=== PATIENT | female | born 1985 | race Two or more races ===

== ENCOUNTER 2017-09-04 03:29 | Emergency (ER) | payer OTHER ==
[~2017-09-04] VITALS: Ht 154.9 cm; Wt 95.3 kg
[~2017-09-04 03:29] MED LIST: ALBU8.5H8 INH; FLUT16SP2 BNOSTRILS; MONT4TAB9 PO; PREN1TAB81 PO
--- NOTE | 2017-09-04 03:40 | NUR ---
PATIENT WALKED INTO ER C/O SOB,TOGUE ITCHY/SWELLING THAT STARTED 4HRS PRIOR TO ARRIVAL. PATIENT STATES SYMPTOMS STARTED AFTER EATTING FOOD. WAS SEEN AT [facility] PRIOR TO ARRIVAL FOR SAME COMPLAINT. CAME HERE FOR SYMPTOMS NOT RESOLVING. PATIENT AT THIS TIME WITH NO DISTRESS NOTED
[2017-09-04] MEDS ORDERED: predniSONE 10 MG TABLET PO ONE (04:00)
[2017-09-04] MEDS ORDERED: ALBUTEROL SULFATE 2.5 MG/3 ML NEBU NEB ONE (04:00)
[2017-09-04] MEDS ORDERED: EPINEPHRINE 1 MG/1 ML AMP SQ ONE (04:00)
[2017-09-04] MEDS ORDERED: FAMOTIDINE 20 MG TABLET PO ONE (04:00)
[2017-09-04] MEDS ORDERED: diphenhydrAMINE 50 MG/1 ML VIAL IM ONE (04:00)
[2017-09-04] MEDS ORDERED: EPINEPHRINE 1 MG/1 ML AMP ONE (04:14)
[2017-09-04] MEDS ORDERED: FAMOTIDINE 20 MG TABLET ONE (04:14)
[2017-09-04] MEDS ORDERED: diphenhydrAMINE 50 MG/1 ML VIAL ONE (04:14)
[2017-09-04] MEDS ORDERED: predniSONE 10 MG TABLET ONE (04:15)
[2017-09-04] MEDS ORDERED: predniSONE 50 MG TABLET ONE (04:15)
[2017-09-04] MEDS ORDERED: ALBUTEROL SULFATE 2.5 MG/3 ML NEBU ONE (04:16)
--- NOTE | 2017-09-04 04:30 | NUR ---
PATIENT SLEEPING WITH NO DISTRESS NOTED
--- NOTE | 2017-09-04 05:40 | NUR ---
Patient discharged to home in stable conditon WITH BOYFRIEND TAKING PATIENT HOME. Written and verbal after care instructions given. Patient verbalizes understanding of instructions. PATIENT WALKED OUT OF ER WITH NO DISTRESS NOTED
[2017-09-04 05:41] VITALS: BP 138/91
== END 2017-09-04 05:45 | disposition home or self-care (01) ==
LOC: ER 03:31
DX: T78.1XXA Other adverse food reactions, not elsewhere classified, initial encounter (principal); J45.909 Unspecified asthma, uncomplicated; F43.10 Post-traumatic stress disorder, unspecified; X58.XXXA Exposure to other specified factors, initial encounter
CPT/HCPCS: 94640; 96372 ×2; 99284; A4663; J0171; J1200; J7512 ×2